=== PATIENT | male | born 2000 | race Two or more races ===

== ENCOUNTER 2020-11-08 01:34 | Emergency (ER) | payer OTHER ==
[~2020-11-08] VITALS: Ht 152.4 cm; Wt 60.0 kg
[2020-11-08] MEDS ORDERED: PERTUSS(ACELL),DIPH,TET VAC/PF 0.5 ML SYRINGE IM. ONE (03:00)
[2020-11-08] MEDS ORDERED: IBUPROFEN 800 MG TABLET PO ONE (03:00)
[2020-11-08] MEDS ORDERED: SULFAMETHOX/TRIMETH DS 800-160 MG/TABLET PO ONE (03:45)
[2020-11-08] MEDS ORDERED: CEPHALEXIN MONOHYDRATE 500 MG CAPSULE PO ONE (03:45)
[2020-11-08 04:05] VITALS: BP 133/80
== END 2020-11-08 04:10 | disposition home or self-care (01) ==
LOC: EMS 01:37
DX: S61.216A Laceration without foreign body of right little finger without damage to nail, initial encounter (principal); L08.9 Local infection of the skin and subcutaneous tissue, unspecified; I10 Essential (primary) hypertension; W45.8XXA Other foreign body or object entering through skin, initial encounter; Y93.89 Activity, other specified; Y92.89 Other specified places as the place of occurrence of the external cause; Y99.8 Other external cause status
CPT/HCPCS: 90471; 90715; 99284